=== PATIENT | female | born 1965 | race Caucasian/White ===

== ENCOUNTER → 2018-01-28 11:18 | Outpatient (CLI) | payer OTHER, SELFPAY ==
--- NOTE | 2018-01-28 | IMM_PTH ---
PATIENT: PETE ESTEVEZ LOC: [facility] U#:[id number] AGE/SX: 59/F ROOM: RE01/28/[address]: Dr. Mckinley Reaves MD : 1965 BED: DIS: SPEC #: [id number] RECD: 02/01/18 10:33 STATUS: CLARK RESteven #: [id number] JER: 01/28/18 00:[address]: Mckinley Reaves DEPT: IMMUNOHISTOCHEMISTRY RECD BY: Lexi Garcia ENTERED: 02/01/18 10:34 SP TYPE: IMMUNO OTHR DR: Dr. Martín Siddiqui MD Tissues: Stomach, NOS Procedures: H Pylori (initial) PHYSICIAN & INSTITUTION [place] [id number] SPECIMEN INFORMATION: Tissue Source: Gastric ulcer biopsy Clinical Info: Abdominal pain, nausea, GERD Specimen Number: [id number] CPT code: 86016 METHODOLOGY: Deparaffinized sections of prefer/formalin-fixed tissue or PAP/DQ stained slides are incubated with monoclonal/polyclonal antibodies/oligonucleotide probes. Localization is made via biotin free immunoperoxidase method. Appropriate controls are performed and reacted as expected. Results on target cell population are indicated in the following table: RESULTS: ANTIBODY / CLONE RESULT H Pylori (polyclonal) negative These tests were developed and their performance characteristics determined by [facility]. They may not have been cleared or approved by the [place] Food and Drug Administration. The FDA has determined that such clearance or approval is not necessary. INTERPRETATION: Gastric ulcer, biopsy: Negative for Helicobacter pylori organisms. AM:escobar 02/02/18
--- NOTE | 2018-01-28 11:18 | GASB_PTH ---
PATIENT: PETE ESTEVEZ LOC: [facility] U#:[id number] AGE/SX: 59/F ROOM: RE01/28/[address]: Dr. Mckinley Reaves MD : 1965 BED: DIS: SPEC #: [id number] RECD: 01/28/18 15:38 STATUS: CLARK SHELDON #: [id number] JER: 01/28/18 11:[address]: Mckinley Reaves DEPT: SURGICAL PATHOLOGY RECD BY: Zachery Koch ENTERED: 01/29/18 13:03 SP TYPE: Gastric Bx OTHR DR: Dr. Martín Siddiqui MD [facility] Tissues: Gastric mucous membrane Procedures: Surgery Specimen Level IV HEADER OPERATION: EGD with biopsy PRE-OP DIAGNOSIS: Abdominal pain, nausea, GERD TISSUE SUBMITTED: Biopsy gastric ulcer MICROSCOPIC DIAGNOSIS Gastric ulcer, biopsy: Mild chronic gastritis with reactive epithelial change. AM:escobar 02/01/18 COMMENT The results of immunohistochemistry for Helicobacter pylori will be reported separately ([id number]). MICROSCOPIC DESCRIPTION Slides are reviewed. GROSS DESCRIPTION Received in fixative is one container labeled with the patient's name and designated biopsy gastric ulcer. The specimen consists of two irregular fragments of breaux soft tissue that in aggregate measure 0.5 x 0.5 x 0.2 cm. The specimen is totally submitted in one cassette. / SJ:escobar 01/29/18 TC:3 CPT: 97826
== END ==
PROVIDERS: Family Provider Family Medicine; PCP Family Medicine; Referring Provider Internal Medicine Gastroenterology; Visit Provider Internal Medicine Gastroenterology
DX: K29.50 Unspecified chronic gastritis without bleeding (principal)
CPT/HCPCS: 88305; 88342

== ENCOUNTER → 2020-09-28 | Outpatient (CLI) | payer OTHER, SELFPAY ==
--- NOTE | 2020-09-28 08:00 | KNEE_PTH ---
PATIENT: PETE ESTEVEZ LOC: [facility] U#:[id number] AGE/SX: 54/F ROOM: RE09/28/[address]: Dr. Jacques Mcmillan MD : 1965 BED: DIS: 09/28/2020 SPEC #: [id number] RECD: 09/28/20 15:10 STATUS: CLARK REQ #: [id number] JER: 09/28/20 08:[address]: Jacques Mcmillan DEPT: SURGICAL PATHOLOGY RECD BY: Evonne Miller ENTERED: 10/01/20 08:09 SP TYPE: TOTAL KNEE OTHR DR: Dr. Martín Siddiqui MD [facility] Tissues: Knee, NOS Procedures: Decalcification bone/plaque Surgery Specimen Level IV HEADER OPERATION: Right total knee replacement PRE-OP DIAGNOSIS: Right knee posttraumatic arthritis TISSUE SUBMITTED: Bone and soft tissue of right knee MICROSCOPIC DIAGNOSIS Bone and soft tissue, right knee, total knee replacement/resection: Pieces of bone with degenerative osteoarthritic changes. Fibroadipose tissue, fibroconnective tissue and reactive synovial tissue. SJ:escobar 10/04/2020 MICROSCOPIC DESCRIPTION Slides are reviewed. GROSS DESCRIPTION Received is one container designated bone and soft tissue right knee. The specimen consists of multiple fragments of breaux-yellow bone measuring in aggregate 16 x 12 x 2 cm. Also in the specimen container are multiple fragments of yellow-white soft tissue measuring in aggregate 9 x 6 x 2 cm. A number of bony fragments contain articular surfaces consistent with tibial plateau and femoral condyle and displaying prominent osteophyte formation, eburnation, and bone erosion. Health Care Liaison sections are submitted in two cassettes as follows: 1 - soft tissue, 2 - bone after decalcification. / AM:escobar 10/01/20 TC:5 [facility]: [id number], [id number]
== END | disposition home or self-care (01) ==
LOC: LABSPEC 15:46
PROVIDERS: PCP Family Medicine; Visit Provider Orthopaedic Surgery
DX: M17.31 Unilateral post-traumatic osteoarthritis, right knee (principal)
CPT/HCPCS: 88305; 88311

== ENCOUNTER 2021-04-22 16:24 | Outpatient (CLI) | payer OTHER, SELFPAY ==
[2021-04-22 17:13] LABS: Amphetamine Urine VISTA NEGATIVE (<1000 ng/mL); Barbiturate Urine VISTA NEGATIVE (< 200 ng/mL); Benzodiazepine Urine VISTA NEGATIVE (< 200 ng/mL); Cocaine Urine VISTA NEGATIVE (< 300 ng/mL); Ecstacy Urine VISTA NEGATIVE (< 500 ng/mL); Methadone Urine VISTA NEGATIVE (< 300 ng/mL); PCP Urine VISTA NEGATIVE (< 25 ng/mL); THC Urine VISTA NEGATIVE (< 50 ng/mL); Vista UDS pH Range 6
== END 2021-04-22 23:59 | disposition home or self-care (01) ==
LOC: LAB 16:26
PROVIDERS: PCP Family Medicine; Referring Provider Anesthesiology Pain Medicine; Visit Provider Anesthesiology Pain Medicine
DX: F11.20 Opioid dependence, uncomplicated (principal)
CPT/HCPCS: 80307